=== PATIENT | female | born 1975 | race Caucasian/White ===

== ENCOUNTER 2023-06-17 08:43 | Outpatient (CLI) | payer OTHER, SELFPAY ==
--- NOTE | 2023-06-17 10:38 | W.ANESCHARGE ---
Anesthesia Charges Start Date/Time Anesthesia Start Date: 06/17/23 Anesthesia Start Time: 10:00 Stop Date/Time Anesthesia Stop Date: 06/17/23 Anesthesia Stop Time: 10:34
== END 2023-06-17 08:44 | disposition home or self-care (01) ==
LOC: OP CLINIC 08:43
PROVIDERS: PCP Family Medicine; Visit Provider Surgery
DX: Z12.11 Encounter for screening for malignant neoplasm of colon (principal); K64.8 Other hemorrhoids; K64.4 Residual hemorrhoidal skin tags
CPT/HCPCS: 45378; 812; J2704

== ENCOUNTER 2023-10-30 15:22 | Outpatient (CLI) | payer OTHER, SELFPAY ==
--- NOTE | 2023-10-30 15:20 | CRLHL7_ITS ---
For Patients: As a result of the Century Cures Act, medical imaging exams and procedure reports are released immediately into your electronic medical record. You may view this report before your referring provider. If you have questions, please contact your health care provider. BILATERAL SCREENING MAMMOGRAM WITH COMPUTER-AIDED DETECTION TECHNIQUE: CC and MLO views were obtained. These mammographic images have been obtained using full-field digital technique. These mammographic images were interpreted with the benefit of computer-aided detection. COMPARISON FILM: 01/29/22, 09/01/20, 04/08/19. FINDINGS: There are scattered areas of fibroglandular density IMPRESSION: There is no radiographic evidence for malignancy. ASSESSMENT: BI-RADS Category 1: Negative RECOMMENDATION: Routine screening mammogram in 1 year. A lay language report of this examination will be provided to the patient. Yonis Powers M.D. Diagnostic Radiologist [email or web address] CELESTINE/Dictated by: Yonis Powers MD @ 11/04/2023 1:11:00 PM (Electronically Signed)
== END 2023-10-30 15:23 | disposition home or self-care (01) ==
LOC: MAMMO 15:22
PROVIDERS: PCP Family Medicine; Visit Provider Family Medicine
DX: Z12.31 Encounter for screening mammogram for malignant neoplasm of breast (principal)
CPT/HCPCS: 77067

== ENCOUNTER 2024-01-07 13:32 | Outpatient (CLI) | payer OTHER, SELFPAY | END 2024-01-07 13:33 | disposition home or self-care (01) | PROVIDERS: PCP Family Medicine; Visit Provider Registered Nurse | DX: Z13.29 Encounter for screening for other suspected endocrine disorder (principal); Z13.1 Encounter for screening for diabetes mellitus | CPT/HCPCS: 82947; 84443 ==

== ENCOUNTER 2025-01-11 14:27 | Outpatient (CLI) | payer BC, SELFPAY | END 2025-01-11 14:28 | disposition home or self-care (01) | PROVIDERS: PCP Family Medicine; Visit Provider Registered Nurse | DX: N89.8 Other specified noninflammatory disorders of vagina (principal); N39.3 Stress incontinence (female) (male); Z13.6 Encounter for screening for cardiovascular disorders; Z13.29 Encounter for screening for other suspected endocrine disorder | CPT/HCPCS: 80061; 84439; 84443 ==

== ENCOUNTER 2025-03-11 09:15 | Outpatient (CLI) | payer BC, SELFPAY | END 2025-03-11 09:16 | disposition home or self-care (01) | LOC: NFLDREF 03-16 19:05 | PROVIDERS: PCP Family Medicine; Referring Provider Family Medicine; Visit Provider Registered Nurse | DX: E03.8 Other specified hypothyroidism (principal) | CPT/HCPCS: 84439; 84443 ==

== ENCOUNTER 2025-06-29 12:00 | Outpatient (CLI) | payer BC, SELFPAY | END 2025-06-29 12:01 | disposition home or self-care (01) | LOC: NFLDREF 07-04 18:50 | PROVIDERS: PCP Family Medicine; Referring Provider Family Medicine; Visit Provider Registered Nurse | DX: N39.3 Stress incontinence (female) (male) (principal); N95.1 Menopausal and female climacteric states | CPT/HCPCS: 87086 ==

== ENCOUNTER 2025-07-13 15:17 | Outpatient (CLI) | payer BC, SELFPAY ==
--- NOTE | 2025-07-13 15:20 | CRLHL7_ITS ---
For Patients: As a result of the Cures Act, medical imaging exams and procedure reports are released immediately into your electronic medical record. You may view this report before your referring provider. If you have questions, please contact your health care provider. INDICATION: BILATERAL SCREENING MAMMOGRAM, ASYMPTOMATIC 50 Y/O FEMALE COMPARISON: 10/30/2023 TECHNIQUE: Digital mammogram in CC and MLO projections including computer-aided detection (CAD) and tomosynthesis. BREAST COMPOSITION: The breasts are heterogeneously dense, which may obscure small masses. FINDINGS: No suspicious findings. ASSESSMENT: BI-RADS 2 Benign RECOMMENDATION: Annual screening mammogram. A lay language report of this examination will be provided to the patient. Dictated by: Yonis Powers MD @ 07/14/2025 09:14:38 (Electronically Signed)
== END 2025-07-13 15:18 | disposition home or self-care (01) ==
LOC: MAMMO 15:18
PROVIDERS: PCP Family Medicine; Visit Provider Registered Nurse
DX: Z12.31 Encounter for screening mammogram for malignant neoplasm of breast (principal); R92.333 Mammographic heterogeneous density, bilateral breasts
CPT/HCPCS: 77063; 77067